=== PATIENT | male | born 1950 | race Caucasian/White ===

== ENCOUNTER 2022-04-29 09:26 | Outpatient (CLI) | payer OTHER, SELFPAY ==
--- NOTE | 2022-04-29 09:15 | PFTS_ITS ---
Date of Study:04/29/22 Date of Dictation: 05/02/2022 MECHANICS: Prebronchodilator forced vital capacity (FVC) is normal Prebronchodilator forced expiratory volume in one second (FEV1) is normal. FEV1/FVC is reduced There is no postbronchodilator study FLOW VOLUME LOOP: Sloping of end expiratory limb suggestive of small airway obstruction. Somewhat flattening of inspiratory and expiratory limbs on a FV loop suspicious versus fixed obstruction. . LUNG VOLUMES: Total lung capacity (TLC) is normal. Residual volume (RV) is normal. DIFFUSING CAPACITY FOR CARBON MONOXIDE: Normal . INTERPRETATION: The spirometry consistent with mild obstruction also evident on flow-volume loop. Postbronchodilator study was not performed. Additionally on flow volume loop the inspiratory and expiratory limbs appear somewhat flattened suspicious for fixed obstruction. This needs to be clinically correlated and may need ENT evaluation. Otherwise lung volumes and gas transfer are normal. Correlate clinically. MTDD
--- NOTE | 2022-04-29 10:32 | PFTS_ITS ---
Date of Study:04/29/22 Date of Dictation: 05/01/2022 MECHANICS: Postbronchodilator forced vital capacity (FVC) is reduced Postbronchodilator forced expiratory volume in one second (FEV1) is severely reduced 40 % FEV1/FVC is reduced. There is significant response to bronchodilators. FLOW VOLUME LOOP: Severe sloping of expiratory limb suggestive of severe airflow obstruction. LUNG VOLUMES: Total lung capacity (TLC) is increased. Residual volume ( RV) is increased suggestive of severe air trapping DIFFUSING CAPACITY FOR CARBON MONOXIDE: Moderately reduced 58 % . INTERPRETATION: The spirometry is suggestive of severe airflow obstruction. There is significant response to bronchodilators. Lung volumes are increased suggestive of severe air trapping. Gas transfer is moderately reduced. Constellation of findings consistent with severe emphysema. Correlate clinically. MTDD
== END 2022-04-29 09:27 | disposition home or self-care (01) ==
LOC: RT 09:28
PROVIDERS: PCP Family Medicine; Visit Provider Family Medicine
DX: R06.00 Dyspnea, unspecified (principal)
CPT/HCPCS: 94010; 94726; 94729

== ENCOUNTER 2024-10-26 15:22 | Emergency (ER) | payer MEDICARE, SELFPAY ==
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
[2024-10-26 15:49] VITALS: BP 156/97; PULSE 76; RESP 16; TEMP 36.4; O2SAT 93; BMI 29.5
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
[2024-10-26 16:57] VITALS: BP 156/85; PULSE 81; O2SAT 94
== END 2024-10-26 16:59 | disposition home or self-care (01) ==
PROVIDERS: Emergency Provider Physician Assistant; PCP Family Medicine
DX: S09.8XXA Other specified injuries of head, initial encounter (principal); V89.2XXA Person injured in unspecified motor-vehicle accident, traffic, initial encounter
CPT/HCPCS: 70450; 72125; 99284